=== PATIENT | male | born 1990 | race Caucasian/White ===

== ENCOUNTER 2019-08-19 19:16 | Emergency (ER) | payer MEDICAID ==
[~2019-08-19] VITALS: Ht 193 cm; Wt 74.0 kg
[2019-08-19 19:18] VITALS: BP 158/79
== END 2019-08-19 19:49 ==
LOC: ER 19:18
DX: F10.129 Alcohol abuse with intoxication, unspecified (principal); F17.200 Nicotine dependence, unspecified, uncomplicated; V49.9XXA Car occupant (driver) (passenger) injured in unspecified traffic accident, initial encounter; Y93.89 Activity, other specified; Y92.410 Unspecified street and highway as the place of occurrence of the external cause; Y99.8 Other external cause status; Y90.9 Presence of alcohol in blood, level not specified
CPT/HCPCS: 99283

== ENCOUNTER 2025-02-07 13:09 | Emergency (ER) | payer MEDICAID, OTHER ==
[~2025-02-07] VITALS: Ht 193 cm; Wt 77.3 kg
--- NOTE | 2025-02-07 13:27 | Physician Documentation ---
History of Present Illness ~ Chief Complaint: Trauma Level 2 Stated Complaint: FELL OUT OF TREE 10 FEET R SHOULDER PAIN Time Seen by MD: 13:20 HPI 34-year-old male presents to the emergency department after falling out of a tree, denies head strike or loss of consciousness has deformity of the right upper extremity, denies any other pain or injury at this time. Occurred: just prior to arrival Pain Severity: severe Mechanism: fall Tetanus within 5 years?: No Medication Reconciliation Allergies: Coded Allergies: No Known Allergies (Unverified , 02/07/25) Past Medical History Past Medical History: No Pertinent History Past Surgical History: no surgical history Alcohol Use: Abuse Physical Exam Vital Signs: Temperature: 98.8, Heart Rate: 65, Respiratory Rate: 22, BP: 124/63, Pulse Oximetry: 100, Weight: 77.270 Oxygen Flow Rate: 0 Procedures Splinting Hand-Made Type: Splint: Pre-Proc Neuro Vasc Exam: normal Post-Proc Neuro Vasc Exam: unchanged from pre-exam Tolerated Procedure Well?: yes, no complications 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 Progress Results/Orders Results/Orders Orders - ARPAN DE JESUS DO Shoulder, Complete (Min 2 Vws) (02/07/25 13:23) Ct Head (02/07/25 13:27) Humerus (2vws) (02/07/25 ) Completed Orders - ARPAN DE JESUS DO Hydromorphone 1 Mg/Ml/Pf (Dilaudid Inj.) (02/07/25 13:25) Ondansetron Inj. (Zofran 4mg/2ml Vial) (02/07/25 13:25) Shoulder, Complete (Min 2 Vws) (02/07/25 13:23) Ct Head (02/07/25 13:27) Humerus (2vws) (02/07/25 ) Hydromorphone 1 Mg/Ml/Pf (Dilaudid Inj.) (02/07/25 14:50) Cbc/Diff (02/07/25 14:50) CMP (02/07/25 14:50) Medications Received in ER Medications (Trade) Dose Ordered Sig/Jose Carlos Route PRN Reason Start Time Stop Time Status Last Admin Dose Admin (Dilaudid inj.) 1 mg ONCE ONCE IV 02/07/25 13:25 02/07/25 13:27 DC 02/07/25 13:31 1 MG (Zofran 4mg/2ml vial) 4 mg ONCE ONCE IV 02/07/25 13:25 02/07/25 13:27 DC 02/07/25 13:29 4 MG (Dilaudid inj.) 1 mg ONCE ONCE IV 02/07/25 14:50 02/07/25 14:53 DC 02/07/25 14:58 1 MG Vital Signs 02/07/25 02/07/25 02/07/25 02/07/25 13:14 13:25 13:31 13:46 Temp 98.8 98.6 Pulse 65 71 78 Resp 22 26 18 20 B/P (MAP) 124/63 118/71 (87) Pulse Ox 100 100 98 O2 Flow Rate 0 02/07/25 02/07/25 02/07/25 02/07/25 13:48 14:12 14:31 14:58 Temp 98.6 98.6 Pulse 79 74 Resp 18 21 17 17 Pulse Ox 98 100 02/07/25 02/07/25 15:26 15:27 Temp 98.6 Pulse 83 Resp 18 19 B/P (MAP) 144/71 (95) Pulse Ox 99 O2 Flow Rate 0 Laboratory Tests Test 02/07/25 13:27 White Blood Count 6.0 Red Blood Count 4.52 L Hemoglobin 14.9 Hematocrit 43.5 Mean Corpuscular Volume 96.1 Mean Corpuscular Hemoglobin 32.9 H Mean Corpuscular Hemoglobin Concent 34.2 Red Cell Distribution Width 12.9 Platelet Count 204 Mean Platelet Volume 8.9 Neutrophils (%) (Auto) 54.2 Lymphocytes (%) (Auto) 36.9 Monocytes (%) (Auto) 7.6 Eosinophils (%) (Auto) 1.0 Basophils (%) (Auto) 0.3 Neutrophils # (Auto) 3.3 Lymphocytes # (Auto) 2.2 Monocytes # (Auto) 0.5 Eosinophils # (Auto) 0.1 Basophils # (Auto) 0.0 CBC Comment Sodium Level 138 Potassium Level 3.7 Chloride Level 98 L Carbon Dioxide Level 21.9 L Anion Gap 18 H Blood Urea Nitrogen 14 Creatinine 1.34 H Estimated GFR/1.73 m2 62 BUN/Creatinine Ratio 10.4 Glucose Level 103 Calcium Level 8.8 Total Bilirubin 0.5 Aspartate Amino Transf (AST/SGOT) 39 H Alanine Aminotransferase (ALT/SGPT) 33 Alkaline Phosphatase 56 Total Protein 7.5 Albumin 4.3 Globulin 3.2 Albumin/Globulin Ratio 1.3 Chemistry Comments Heart Score: Heart Score Response (Comments) Value History N/A 0 EKG N/A 0 Age N/A 0 Risk Factors N/A 0 Troponin N/A 0 Total 0 Medical Decision Making Differential Dx:Considerations: Include: Closed head injury, Cardiac injury, Fracture(s), Spine injury, Tracheal injury, Contusion(s), Hematoma(s), Laceration(s), Encephalopathy Departure Disposition: HOME / SELF CARE / HOMELESS Impression: Primary Impression: Fracture Additional Impression: Fracture, humerus closed, shaft Condition: Stable Discharge Instructions: Humerus Fracture Treated With Immobilization Additional Instructions: Please call Dr. Wolf's office on Monday to get follow up, use pain meds as directed, return to the ER for any complications Referrals: NO PRIMARY CARE PROVIDER (PCP) CELESTINO WOLF Jr., MD 3-4 days Please call for follow up on Monday Prescriptions Hydrocodone Bit/Acetaminophen (Hydrocodone-Apap 10-325 Tablet) 10mg/325mg Tablet 1 TAB PO QID PRN PRN for pain for 5 Days, #20 TAB Prov: ARPAN DE JESUS DO 02/07/25 Education Educated: Patient, Family Educated regarding: diagnosis, treatment, prognosis, need for follow up Signature Scribe Signature: None Attestation: Dictated by myself ARPAN DE JESUS DO Feb 07, 2025 13:27
[2025-02-07] MEDS: ondansetron/PF 4mg/2ml inj IV ONE (13:29)
[2025-02-07] MEDS: HYDROmorphone 1 mg/ml syringe IV ONE ×2 (13:31→14:58)
--- NOTE | 2025-02-07 14:17 | RADIOLOGY REPORT ---
CLINICAL INDICATION: RIGHT ARM TRAUMA TECHNIQUE: Right DI HUMERUS (2VWS) Comparison: None FINDINGS/IMPRESSION: : Displaced an angulated fracture of the mid shaft of the humerus.
--- NOTE | 2025-02-07 14:49 | RADIOLOGY REPORT ---
CLINICAL INFORMATION: 34 years old, Male; trauma. TECHNIQUE: Axial imaging was obtained through the brain without contrast. Coronal and sagittal reform atted images were obtained, reviewed, and stored. Images were reviewed in brain and bone windows. Al l CT scans at this medical facility are performed using dose modulation techniques as appropriate to a performed exam including the following: Automated exposure control was utilized; adjustment of the MA and/or KV according to patient size; and use of iterative reconstruction technique. CTDIvol = 67.5 1 mGy DLP = 1304.17 mGy-cm COMPARISON: None FINDINGS: Motion artifact limits evaluation. There is no acute intracranial hemorrhage. No mass effec t or midline shift. The ventricles and sulci are within normal limits in size for age. Basal cisterns are patent. The calvarium is unremarkable. Small retention cyst versus polyp in the right maxillary sinus. Mastoid air cells are clear. IMPRESSION: 1. No CT evidence of acute intracranial abnormality. 2. Motion artifact limits evaluation.
[2025-02-07 15:04] LABS: BASOPHILS % (AUTO) 0.3 % (0-1); EOSINOPHILS # (AUTO) 0.1 X10'3 (0-0.9); HEMATOCRIT 43.5 % (42.0-52.0); HEMOGLOBIN 14.9 g/dl (14.0-17.9); LYMPHOCYTES # (AUTO) 2.2 X10'3 (1.1-4.8); LYMPHOCYTES % (AUTO) 36.9 % (21-51); MEAN CORPUSCULAR HEMOGLOBIN 32.9 PG (27.0-31.0); MEAN CORPUSCULAR HGB CONC 34.2 g/dL (33.0-36.5); MEAN CORPUSCULAR VOLUME 96.1 FL (78-98); MEAN PLATELET VOLUME 8.9 FL (7.4-10.4); MONOCYTES # (AUTO) 0.5 X10'3 (0-0.9); MONOCYTES % (AUTO) 7.6 % (2-12); NEUTROPHILS # (AUTO) 3.3 X10'3 (1.8-7.7); NEUTROPHILS % (AUTO) 54.2 % (42-75); PLATELET COUNT 204 X10'3 (140-440); RED BLOOD COUNT 4.52 X10'6 (4.70-6.10); RED CELL DISTRIBUTION WIDTH 12.9 % (11.5-14.5)
[2025-02-07 15:14] LABS: ALANINE AMINOTRANSFERASE 33 U/L (12-78); ALBUMIN 4.3 G/DL (3.4-5.0); ALBUMIN/GLOBULIN RATIO 1.3 (1.1-1.5); ALKALINE PHOSPHATASE 56 IU/L (46-116); ANION GAP 18 (8-16); ASPARTATE AMINO TRANSFERASE 39 U/L (10-37); BILIRUBIN,TOTAL 0.5 MG/DL (0.1-1.0); BLOOD UREA NITROGEN 14 MG/DL (7-18); BUN/CREATININE RATIO 10.4 (10.0-20.0); CALCIUM 8.8 MG/DL (8.5-10.1); CHLORIDE 98 MMOL/L (99-107); CREATININE 1.34 MG/DL (0.60-1.10); GLUCOSE 103 MG/DL (70-104); POTASSIUM 3.7 MMOL/L (3.5-5.1); SODIUM 138 MMOL/L (135-145); TOTAL CARBON DIOXIDE 21.9 MMOL/L (24-32); TOTAL PROTEIN 7.5 G/DL (6.4-8.2); eCRCL 87 ML/MIN; eGFR 62 ML/MIN
[2025-02-07 15:27] VITALS: BP 144/71
--- NOTE | 2025-02-07 15:33 | RADIOLOGY REPORT ---
Indication: Shoulder Pain Technique: 2 views of the right shoulder Comparison: None FINDINGS/IMPRESSION: Severely displaced, angulated fracture of the right humeral mid diaphysis. No evidence for glenohumeral dislocation.
[2025-02-07] MEDS ORDERED: HYDR-3973 PO (15:47)
[2025-02-07 16:06] VITALS: PULSE 78; RESP 18; TEMP 98.6; O2SAT 99
== END 2025-02-07 20:09 | disposition home or self-care (01) ==
LOC: ER 13:09
DX: S42.391A Other fracture of shaft of right humerus, initial encounter for closed fracture (principal); F10.10 Alcohol abuse, uncomplicated; W14.XXXA Fall from tree, initial encounter; Y93.89 Activity, other specified; Y92.89 Other specified places as the place of occurrence of the external cause; Y99.8 Other external cause status; Y90.9 Presence of alcohol in blood, level not specified
CPT/HCPCS: 36415; 70450; 73030; 73060; 80053; 85025; 96374; 96375; 96376; 99285; J1171; J2405; A4565; A6446; A6449; L0172